=== PATIENT | male | born 1970 | race African-American/Black ===

== ENCOUNTER 2016-11-28 15:17 | Inpatient (IN) | payer BC ==
[~2016-11-28] VITALS: Ht 177.8 cm; Wt 120.9 kg
--- NOTE | ~2016-11-28 | EKG ---
[place] [address] [facility] [place] [employer] [address] ELECTROCARDIOGRAM REPORT Name: FANG LAUREN Room #: [facility] M.R.#: [id number] Admission: Attend Phys: Discharge: Date of : 66 Report #: [id number] THIS REPORT FOR: //name// [facility] ED Test Date: 2016-11-28 Test Time: 15:22:22 Pat Name: FANG LAUREN Department: Room: Gender: Platform Man: Mary Ann CUENCA : 1970 Requested By: Yovani Jackson Order Number: [id number] MD: Gary Trent Measurements Intervals [place] Rate: 93 P: 43 [place]: 163 QRS: -44 QRSD: 105 T: 119 QT: 381 QTc: 474 Interpretive Statements Sinus rhythm Left atrial enlargement Left anterior fascicular block LVH with secondary repolarization abnormality Electronically Signed On 11-28-2016 16:00:36 CDT by Gary Trent [email or web address] <ELECTRONICALLY SIGNED> By: Gary Trent MD 11/28/16 1600 152 1522 Gary Trent MD /HAILEY
[~2016-11-28 15:17] MED LIST: ALDACTONE50 MG PO; BENZONATATE100 MG PO; CARVEDILOL12.5 MG PO; COZAAR 50 MG TA50 M2 PO; COZAAR 50 MG TA50 MG PO; ECOTRIN325 MG PO; FUROSEMIDE 40 M40 M1 PO; HYDRALAZINE 2525 MG PO; IMDUR 60 MG TAB60 M1 PO; LASIX 40 MG TAB40 M2 PO; LEVAQUIN 750 M750 MG PO; LEXAPRO 10 MG T10 M2 PO; POTASSIUM20 PO; TIZANIDINE HCL4 MG PO; XANAX 0.5 MG0.5 MG PO
[2016-11-28 15:19] VITALS: BP 177/122
[2016-11-28 17:07] LABS: AMP/METHAMP Negative (Negative); BARBITURATES Negative (Negative); BENZODIAZEPINES Negative (Negative); COCAINE POSITIVE (Negative); METHADONE Negative (Negative); OPIATES Negative (Negative); PCP Negative (Negative); THC Negative (Negative)
[2016-11-28 17:12] LABS: HEMATOCRIT 39.2 % (42.0-52.0); HEMOGLOBIN 12.7 gm/dL (14.0-18.0); MCH 28.3 pg (26.0-34.0); MCHC 32.4 g/dL (28.0-37.0); MCV 87.3 fL (80.0-100.0); PLATELET COUNT 301 thou/uL (150-400); RBC 4.49 mil/uL (4.50-6.00); RDW 14.5 % (10.5-14.5); WBC 6.9 thou/uL (4.0-11.0)
[2016-11-28 17:13] LABS: MANUAL DIFF YES
[2016-11-28 17:21] LABS: CALCIUM 8.6 mg/dL (8.5-10.1); CREATININE 1.3 mg/dL (0.7-1.3); POTASSIUM 3.6 mmol/L (3.5-5.1)
[2016-11-28 17:33] LABS: TROPONIN-I 0.04 ng/mL (<0.04-0.07)
[2016-11-28 17:49] LABS: ABSOLUTE NEUTROPHILS 3.5 thou/uL (1.4-8.2); ANISOCYTOSIS 1+; ATYPICAL LYMPHS 1 %; POIKILOCYTOSIS SLIGHT; TOTAL CELL COUNT 100
[2016-11-28 19:57] VITALS: BP 147/94
[2016-11-28 20:20] VITALS: BP 163/96
[2016-11-28 23:30] VITALS: BP 145/87
[2016-11-29 03:55] VITALS: BP 160/97
[2016-11-29 05:24] LABS: HEMATOCRIT 37.3 % (42.0-52.0); HEMOGLOBIN 12.3 gm/dL (14.0-18.0); MCH 28.6 pg (26.0-34.0); MCHC 32.9 g/dL (28.0-37.0); MCV 87.1 fL (80.0-100.0); PLATELET COUNT 257 thou/uL (150-400); RBC 4.28 mil/uL (4.50-6.00); RDW 15.1 % (10.5-14.5); WBC 6.6 thou/uL (4.0-11.0)
[2016-11-29 05:43] LABS: MANUAL DIFF YES
[2016-11-29 06:03] LABS: ANION GAP 9 mmol/L (7-16); BUN 20 mg/dL (7-18); CALCIUM 8.9 mg/dL (8.5-10.1); CHLORIDE 108 mmol/L (98-107); CO2 25 mmol/L (21-32); CREATININE 1.2 mg/dL (0.7-1.3); GLUCOSE 100 mg/dL (74-106); POTASSIUM 3.8 mmol/L (3.5-5.1); SODIUM 142 mmol/L (136-145); TROPONIN-I < 0.04 ng/mL (<0.04-0.07)
[2016-11-29 07:34] VITALS: BP 168/102
[2016-11-29 08:35] LABS: ABSOLUTE NEUTROPHILS 3.3 thou/uL (1.4-8.2); PLATELET ESTIMATE NORMAL; TOTAL CELL COUNT 100
[2016-11-29 11:03] VITALS: BP 131/79
[2016-11-29 15:50] VITALS: BP 146/91
[2016-11-29 19:40] VITALS: BP 141/85
[2016-11-30 04:30] VITALS: BP 154/109
[2016-11-30 06:01] VITALS: BP 151/108
[2016-11-30 08:20] VITALS: BP 150/103
[2016-11-30 12:01] VITALS: BP 157/92
[2016-11-30 13:54] VITALS: BP 157/92
== END 2016-11-30 14:53 | disposition home or self-care (01) | DRG 313 ==
LOC: ER 15:17 → EROBS 18:57 → 3N 18:57
PROVIDERS: Emergency Medicine; Internal Medicine Geriatric Medicine
DX: R07.89 Other chest pain (principal); I42.8 Other cardiomyopathies; F14.10 Cocaine abuse, uncomplicated; F41.9 Anxiety disorder, unspecified; I16.0 Hypertensive urgency; I11.0 Hypertensive heart disease with heart failure; I50.9 Heart failure, unspecified; F12.10 Cannabis abuse, uncomplicated; Z87.01 Personal history of pneumonia (recurrent); Z91.013 Allergy to seafood; Z91.010 Allergy to peanuts; Z82.49 Family history of ischemic heart disease and other diseases of the circulatory system; Z79.82 Long term (current) use of aspirin; Z79.899 Other long term (current) drug therapy
CPT/HCPCS: 10096

== ENCOUNTER → 2021-01-05 | Outpatient (CLI) | payer OTHER | LOC: SJCVCIMAG 12-28 10:21 | PROVIDERS: ATTEND Internal Medicine | DX: I34.0 Nonrheumatic mitral (valve) insufficiency (principal); I49.3 Ventricular premature depolarization; I42.0 Dilated cardiomyopathy; I11.0 Hypertensive heart disease with heart failure; I50.20 Unspecified systolic (congestive) heart failure; E78.5 Hyperlipidemia, unspecified; Z88.8 Allergy status to other drugs, medicaments and biological substances; Z79.899 Other long term (current) drug therapy ==